=== PATIENT | male | born 1990 | race African-American/Black ===

== ENCOUNTER 2016-10-04 15:30 | Emergency (ER) | payer OTHER ==
[~2016-10-04] VITALS: Ht 170.2 cm; Wt 73.5 kg
[2016-10-04 17:01] VITALS: BP 102/61
== END 2016-10-04 16:36 | disposition home or self-care (01) ==
LOC: ER 15:30
DX: S61.214A Laceration without foreign body of right ring finger without damage to nail, initial encounter (principal); F10.99 Alcohol use, unspecified with unspecified alcohol-induced disorder; W31.89XA Contact with other specified machinery, initial encounter; Y93.89 Activity, other specified; Y92.89 Other specified places as the place of occurrence of the external cause; Y99.0 Civilian activity done for income or pay

== ENCOUNTER 2016-10-28 01:45 | Emergency (ER) | payer OTHER ==
[~2016-10-28] VITALS: Ht 172.7 cm; Wt 74.8 kg
== END 2016-10-28 02:41 | disposition short-term general hospital (02) ==
LOC: ER 01:45
DX: S21.331A Puncture wound without foreign body of right front wall of thorax with penetration into thoracic cavity, initial encounter (principal); S27.2XXA Traumatic hemopneumothorax, initial encounter; R00.1 Bradycardia, unspecified; I95.9 Hypotension, unspecified; F10.99 Alcohol use, unspecified with unspecified alcohol-induced disorder; X95.9XXA Assault by unspecified firearm discharge, initial encounter; Y93.89 Activity, other specified; Y92.481 Parking lot as the place of occurrence of the external cause; Y99.8 Other external cause status